=== PATIENT | male | born 1950 | race Caucasian/White ===

== ENCOUNTER 2022-07-02 13:23 | Outpatient (CLI) | payer MEDICARE ==
[~2022-07-02 13:23] MED LIST: Magnevist 469MG/ML 20 ML VIAL ONE
== END 2022-07-02 13:24 | disposition home or self-care (01) ==
LOC: CSHSPEC 13:23
PROVIDERS: ATTEND Internal Medicine Cardiovascular Disease
DX: I63.512 Cerebral infarction due to unspecified occlusion or stenosis of left middle cerebral artery (principal); I67.2 Cerebral atherosclerosis; Z86.73 Personal history of transient ischemic attack (TIA), and cerebral infarction without residual deficits
CPT/HCPCS: 70553; A9579